=== PATIENT | female | born 1995 | race Caucasian/White ===

== ENCOUNTER 2021-07-19 09:40 | Observation (INO) | payer OTHER ==
[~2021-07-19] VITALS: Ht 162.6 cm; Wt 87.1 kg
[2021-07-19] MEDS ORDERED: PNV91TAB8 PO (10:00)
[2021-07-19 10:36] VITALS: BP 119/62
== END 2021-07-19 11:40 | disposition home or self-care (01) ==
LOC: MLD 09:40
PROVIDERS: ADMIT Obstetrics & Gynecology; ATTEND Obstetrics & Gynecology
DX: O26.893 Other specified pregnancy related conditions, third trimester (principal); Z20.822 Contact with and (suspected) exposure to COVID-19; R10.30 Lower abdominal pain, unspecified; Z3A.38 38 weeks gestation of pregnancy
CPT/HCPCS: 76819; 87426; G0378; G0379; Q0092